=== PATIENT | female | born 2005 | race Caucasian/White ===

== ENCOUNTER → 2025-01-01 | Outpatient (CLI) | payer OTHER ==
[2025-01-01 08:59] VITALS: BP 119/75; PULSE 68; RESP 16; TEMP 98.5
--- NOTE | 2025-01-01 09:50 | P.HPOB ---
History of Present Illness H&P Date: 01/01/25 Chief Complaint: The patient is here for her routine gynecologic exam. This is a 19-year-old G0 with an LMP of 12/25/2024. The patient is here to establish with this office. She has never had a pelvic exam before. She has been on control pills for about 1 year. Her control pills did not come in until Tuesday and she missed the pill on Tuesday so she took 2 pills on Tuesday. She did have a headache on Tuesday. She has had occasional headaches. She thinks she had a yeast infection 1 week ago because of irritation at the vaginal opening. She used [id number] cream for yeast infection for 7 days and this resolved. She last used it about 1 week ago. She denies vaginal discharge or odor. She has been sexually active since age 16. She uses condoms even while on control pills. Review of Systems The patient has gained 12 pounds over the last year. She thinks she was overly thin in the past and thinks some of the weight gain was due to the control pills. She denies respiratory, cardiac, or G.I. problems. Occasional headaches. Past Medical History Past Medical History: Asthma Additional Past Medical History / Comment(s): Childhood asthma not requiring medication currently. Lactose intolerance. 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 Menarche was at age 16. History of Any Multi-Drug Resistant Organisms: None Reported Additional Past Surgical History / Comment(s): [place] teeth removed. Smoking Status: Never smoker Past Alcohol Use History: None Reported Past Drug Use History: None Reported Additional History: She is a student at [employer]. She has been with her boyfriend since early 2023. They do not live together. - Past Family History Father Additional Family Medical History / Comment(s): Carpal tunnel syndrome. A paternal aunt had breast cancer. Mother Family Medical History: Unable to Obtain Medications and Allergies Home Medications and Allergies Comment(s): Vienva Oral contraception daily. Allergies Allergy/AdvReac Type Severity Reaction Status Date / Time No Known Allergies Allergy Unverified 01/01/25 08:49 Exam Vital Signs Temp Pulse Resp BP Pulse Ox 01/01/25 08:51 98.5 F 68 16 119/75 100 Intake and Output 12/31/24 01/01/25 01/01/25 22:59 06:59 14:59 Other: Weight 56.699 kg Height 5 feet 3 inches, weight 125 pounds, BMI 22.1. This is a well-developed well-nourished female who is alert and oriented times 3 in no acute distress. HEENT: Within normal limits. NECK: Supple without mass or thyromegaly. CHEST AND LUNGS: Clear to auscultation. HEART: Regular rate and rhythm. BREASTS: Are without mass or discharge. AXILLARY EXAM: Negative for adenopathy. BACK: Negative for CVA tenderness. ABDOMEN: Soft, nontender, without palpable masses. PELVIC EXAM: Normal external genitalia. Cervix and vagina appear normal. There is no unusual discharge. There is no cervical motion tenderness. There is no evidence of prolapse. The uterus is midposition, nongravid size and nontender. There are no palpable adnexal masses or tenderness. RECTAL EXAM: Deferred. EXTREMITIES: Nontender. IMPRESSION: 1. 19-year-old female on oral contraception, with normal gynecologic exam. 2. Recently self treated for a yeast infection about a week ago with symptoms resolved and normal findings on exam today. PLAN: 1. Pap smear was deferred until age 21. 2. GC and Chlamydia screening was obtained from the cervix. 3. Self breast examination was discussed with the patient. 4. STD prevention was discussed. I stressed the importance of limiting sexual partners and have recommended that she continue to use condoms for STD prevention. 5. Had a long discussion regarding oral contraception. We have discussed increased risk for blood clots. We have also discussed possible side effects. If she is having problems with headaches on control pills, we can consider alternatives. The electronic prescription will be sent to [facility] in [facility]. 6. She was advised to return in one year for her annual well woman exam and as needed.
== END ==
LOC: WWCWWP 08:12
PROVIDERS: ATTEND Obstetrics & Gynecology
DX: Z01.419 Encounter for gynecological examination (general) (routine) without abnormal findings (principal)
CPT/HCPCS: 87491; 87591